=== PATIENT | male | born 1940 | race Caucasian/White ===

== ENCOUNTER 2018-10-03 18:42 | Emergency (ER) | payer OTHER, MEDICARE ==
[~2018-10-03] VITALS: Ht 177.8 cm; Wt 78.0 kg
[2018-10-03 19:04] VITALS: Ht 177.8 cm; Wt 78.0 kg
[2018-10-03 21:24] LABS: BASOPHIL % 0.4 % (0-2); PLATELET COUNT 200 x10^3mcL (130-400); RED CELL DISTRIBUTION WIDTH 13.6 % (11.5-14.5)
[2018-10-03 21:34] LABS: CALCIUM 9.4 mg/dL (8.5-10.1); CARBON DIOXIDE 29.4 mmol/L (21-32); CHLORIDE SERUM 107 mmol/L (98-107); GLUCOSE SERUM 98 mg/dL (74-106); SODIUM SERUM 142 mmol/L (136-145)
[2018-10-03 21:38] LABS: ALBUMIN 3.8 g/dL (3.4-5.0); ALKALINE PHOSPHATASE 130 U/L (46-116); ALT/SGPT 42 U/L (16-63); AST/SGOT 25 U/L (15-37); BILIRUBIN TOTAL 0.6 mg/dL (0.20-1.00); TOTAL PROTEIN, SERUM 6.7 g/dL (6.4-8.2)
[2018-10-03 23:07] VITALS: BP 121/79
== END 2018-10-03 23:07 | disposition home or self-care (01) ==
LOC: ED 18:42
PROVIDERS: Emergency Medicine
DX: K59.00 Constipation, unspecified (principal); E86.0 Dehydration; I10 Essential (primary) hypertension; F32.9 Major depressive disorder, single episode, unspecified; Z88.0 Allergy status to penicillin
CPT/HCPCS: 36415